=== PATIENT | male | born 1965 | race Caucasian/White ===

== ENCOUNTER 2020-12-03 09:56 | Emergency (ER) | payer MEDICAID ==
[2020-12-03 10:03] VITALS: BP 137/87; PULSE 72; TEMP 98.3
--- NOTE | 2020-12-03 10:21 | XR ---
EXAMINATION TYPE: XR chest 2V DATE OF EXAM: 12/03/2020 COMPARISON: NONE HISTORY: Cough and shortness of breath, Covid TECHNIQUE: Frontal and lateral views of the chest are obtained. FINDINGS: There is bilateral airspace disease present. No evident pneumothorax or pleural effusion. Cardiac mediastinal silhouette is within normal limits. IMPRESSION: Correlate for pneumonia.
[2020-12-03] MEDS ORDERED: cefTRIAXone 1,000 MG VIAL (IM USE) IM STA (11:38)
--- NOTE | 2020-12-03 11:41 | ED ---
URI HPI - General Chief Complaint: Upper Respiratory Infection Stated Complaint: Covid+, worsening symptoms Time Seen by Provider: 12/03/20 11:26 Source: patient, RN notes reviewed Mode of arrival: ambulatory Limitations: no limitations - History of Present Illness Initial Comments: 55-year-old male presents emergency Department chief complaint of fever or shortness of breath. Patient was diagnosed with covid 11 days ago. 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 Patient denies any significant past medical history no current medications. Denies any significant GI symptoms currently. No recent Tylenol Motrin. - Related Data Home Medications Medication Instructions Recorded Confirmed Fish Oil 1 cap PO DAILY 05/29/15 06/02/15 Multivitamins, Thera [Theragran] 1 each PO DAILY 05/29/15 06/02/15 Previous Rx's Medication Instructions Recorded Dexamethasone 6 mg PO DAILY #5 tablet 12/03/20 Allergies Allergy/AdvReac Type Severity Reaction Status Date / Time venom-honey bee Allergy Unknown WELTS Verified 12/03/20 10:00 [bee venom (honey bee)] Review of Systems ROS Statement: Those systems with pertinent positive or pertinent negative responses have been documented in the HPI. ROS Other: All systems not noted in ROS Statement are negative. Past Medical History Past Medical History: No Reported History History of Any Multi-Drug Resistant Organisms: None Reported Additional Past Surgical History / Comment(s): ACHILLES TENDON SURG. Past Anesthesia/Blood Transfusion Reactions: No Reported Reaction Past Psychological History: No Psychological Hx Reported Smoking Status: Never smoker Past Alcohol Use History: Occasional Past Drug Use History: None Reported - Past Family History Mother Family Medical History: No Reported History General Exam Limitations: no limitations General appearance: alert, in no apparent distress Head exam: Present: atraumatic, normocephalic, normal inspection Eye exam: Present: normal appearance, PERRL, EOMI. Absent: scleral icterus, conjunctival injection, periorbital swelling ENT exam: Present: normal exam, normal oropharynx, mucous membranes moist Neck exam: Present: normal inspection, full ROM. Absent: tenderness, meningismus, lymphadenopathy Respiratory exam: Present: decreased breath sounds. Absent: normal lung sounds bilaterally, respiratory distress, wheezes, rales, rhonchi, stridor Cardiovascular Exam: Present: regular rate, normal rhythm, normal heart sounds. Absent: systolic murmur, diastolic murmur, rubs, gallop, clicks Course Vital Signs 12/03/20 10:00 Temperature 98.3 F Pulse Rate 72 Respiratory 18 Rate Blood Pressure 137/87 O2 Sat by Pulse 94 L Oximetry Medical Decision Making - Medical Decision Making X-ray shows evidence of pneumonia this a questionable bacterial and viral pneumonia patient did state that he started antibiotics recently continue that I will be started on steroids will be given a shot of Rocephin and discharged with close follow-up. Patient does not qualify for monoclonal antibodies. Disposition Clinical Impression: Pneumonia due to COVID-19 virus Disposition: HOME SELF-CARE Condition: Stable Instructions (If sedation given, give patient instructions): Coronavirus Disease 2019 (COVID-19) Additional Instructions: Please return to the Emergency Department if symptoms worsen or any other concerns. Prescriptions: Dexamethasone 6 mg PO DAILY #5 tablet Is patient prescribed a controlled substance at d/c from ED?: No Referrals: Marielena Ivy NPC [Primary Care Provider] - 1-2 days Time of Disposition: 11:41
[2020-12-03 12:19] VITALS: RESP 19
== END 2020-12-03 12:18 | disposition home or self-care (01) ==
LOC: EC 09:56
DX: U07.1 COVID-19 (principal); J12.82 Pneumonia due to coronavirus disease 2019
CPT/HCPCS: 71046; 99284; 96372; J0696